=== PATIENT | male | born 1960 | race Caucasian/White ===

== ENCOUNTER → 2022-07-23 14:09 | Outpatient (BNVA) | payer OTHER, SELFPAY | PROVIDERS: Visit Provider Emergency Medicine | DX: M19.011 Primary osteoarthritis, right shoulder (principal) | CPT/HCPCS: 73030 ==

== ENCOUNTER → 2022-08-04 08:07 | Outpatient (BNVA) | payer OTHER, SELFPAY | PROVIDERS: PCP Family Medicine; Visit Provider Family Medicine | DX: I34.1 Nonrheumatic mitral (valve) prolapse (principal) | CPT/HCPCS: 80053; 80061; 83721; 84439; 84443; 85025 ==

== ENCOUNTER 2022-08-24 14:43 | Outpatient (CLI) | payer OTHER, SELFPAY ==
--- NOTE | 2022-08-24 15:15 | USCV_ITS ---
Omar Salazar Age: 62 Gender: M : 1960 Exam Date: 08/24/2022 14:58 Ordering Phys: Abdi Brothers MD Technologist: Genoveva Pierce Exam Location: [facility] [place] Indication: MV prolapse with SOB BP: 137 / 88 HR: 86 Rhythm: Sinus Technical Quality: Adequate MEASUREMENTS (Male / Female) Normal Values 2D ECHO LV Diastolic Diameter PLAX 4.7 cm 4.2 - 5.9 / 3.9 - 5.3 cm LV Systolic Diameter PLAX 3.0 cm IVS Diastolic Thickness 0.7 cm 0.6 - 1.0 / 0.6 - 0.9 cm IVS Systolic Thickness 1.7 cm LVPW Diastolic Thickness 0.9 cm 0.6 - 1.0 / 0.6 - 0.9 cm LVPW Systolic Thickness 1.7 cm LVOT Diameter 2.0 cm LV Ejection Fraction 2D Teich 66.5 % LV Ejection Fraction MOD 2C 74.1 % LV Ejection Fraction 2C AL 73.9 % LA Diameter 2.9 cm LA Width 3.3 cm LA Height 3.6 cm RA Width 3.0 cm RA Height 3.8 cm Aorta at Sinotubular Diameter 3.4 cm IVC Diameter 1.0 cm M-MODE Aortic Annulus Diameter 3.0 cm LA Ao Ratio MM 0.9 MV E Point Septal Separation 0.9 cm DOPPLER AV Peak Velocity 126.0 cm/s LVOT Peak Velocity 124.0 cm/s AV Area Cont Eq vti 3.0 cm squared AV Area Cont Eq pk 3.2 cm squared MV Peak Velocity 106.0 cm/s MV Area PHT 4.8 cm squared Mitral E to A Ratio 1.3 MV E' Velocity 60.5 cm/s Mitral E to MV E' Ratio 12.7 Mitral E to LV E' Lateral Ratio 10.7 Mitral E to LV E' Septal Ratio 16.1 TR Peak Velocity 96.0 cm/s TR Peak Gradient 3.7 mmHg Right Atrial Pressure 5.0 mmHg Pulmonary Artery Systolic Pressu 8.7 mmHg PV Peak Velocity 78.0 cm/s RV Acceleration Time 0.1 s RV Ejection Time 0.3 s RV AcT/ET 0.3 FINDINGS Left Ventricle Left ventricle is normal in size. LV systolic function is normal with EF 55 to 60%. No regional wall motion normalities are seen. Right Ventricle Normal in size and function Right Atrium Normal in size Left Atrium Normal in size Mitral Valve Grossly normal. No significant stenosis. Trace mitral regurgitation. Aortic Valve Grossly normal. No significant stenosis or regurgitation seen. Tricuspid Valve Trace tricuspid regurgitation. Insufficient TR jet to calculate RVSP Pulmonic Valve Not well visualized Pericardium Normal Aorta Mild dilation of ascending aorta IVC Appears to be normal CONCLUSIONS Technically limited quality echocardiogram because of poor ultrasonic windows. LV systolic function is normal with EF 55 to 60%. Grossly normal mitral valve. Trace mitral regurgitation. Trace tricuspid regurgitation Mild dilation of ascending aorta No comparison studies are available Biju Resendiz MD (Electronically Signed) Final Date: 26 August 2022 10:35 S
== END 2022-08-24 14:44 | disposition home or self-care (01) ==
PROVIDERS: PCP Family Medicine; Visit Provider Family Medicine
DX: I34.1 Nonrheumatic mitral (valve) prolapse (principal); I07.1 Rheumatic tricuspid insufficiency; I77.819 Aortic ectasia, unspecified site
CPT/HCPCS: 93306

== ENCOUNTER 2022-08-30 12:11 | Outpatient (CLI) | payer OTHER, SELFPAY ==
--- NOTE | 2022-08-30 12:00 | CT_ITS ---
WS: [id number] LDCT LUNG CANCER SCREENING TECHNIQUE: Noncontrast CT of the chest with coronal and sagittal reformatted images. CLINICAL INFORMATION: lung cancer scr COMPARISON: None. DLP: 85.61 mGy.cm DIvol: Mean CTDIvol: 1.70 (mGy) All CT scans at [facility] use at least one of these dose optimization techniques: automat ed exposure control; mA and/or kV adjustment per patient size (includes targeted exams where dose is matched to clinical indication); or iterative reconstruction. FINDINGS:Noncalcified nodule RIGHT lower lobe measuring 6.5 mm. Normal caliber thoracic aorta. Aortic calcification. No mediastinal or hilar lymphadenopathy. No axil gutierrez lymphadenopathy. Normal GE junction. Adrenal glands are normal. Mild thoracic curve. Schmorl's nodes in the mid and lo wer thoracic spine. CT/CT lung screening [id number] IMPRESSION:Noncalcified nodule RIGHT lower lobe measuring 6.5 mm. Recommend [facility] LUNG-RADS: 3-Probably Benign FOLLOW UP: 6 Month LDCT
== END 2022-08-30 12:12 | disposition home or self-care (01) ==
PROVIDERS: PCP Family Medicine; Visit Provider Family Medicine
DX: Z12.2 Encounter for screening for malignant neoplasm of respiratory organs (principal); F17.219 Nicotine dependence, cigarettes, with unspecified nicotine-induced disorders
CPT/HCPCS: 71271; 80053; 80061; 83721; 84439; 84443; 85025

== ENCOUNTER 2022-11-02 18:22 | Emergency (ER) | payer OTHER, SELFPAY ==
[2022-11-02 18:26] VITALS: BP 177/77; PULSE 96; TEMP 36.4; O2SAT 96; BMI 17.8
--- NOTE | 2022-11-02 18:40 | XRR_ITS ---
PROCEDURE INFORMATION: Exam: XR Left Finger(s) Exam date and time: 11/02/2022 6:44 PM Age: 62 years old Clinical indication: Injury or trauma; Other: Smashed; Crushing; Left; Index finger; Additional info: Left index finger injury (crush) TECHNIQUE: Imaging protocol: Radiologic exam of the left fingers. Views: Minimum 2 views. COMPARISON: No relevant prior studies available. FINDINGS: Bones/joints: Normal. Soft tissues: Normal. XR/XR finger LT min 2V [id number] IMPRESSION: No acute findings.
--- NOTE | 2022-11-02 18:56 | W.ED.EXTPRO ---
HPI - Extremity Problem General: Chief complaint: Extremity Injury, Upper Stated complaint: left finger injury Time Seen by Provider: 11/02/22 18:38 History of Present Illness: Patient is in today after injuring left index finger. He reports that he smashed it between the bumper and the trailer hitch on his knuckle. He reports that he only came in because there was significant bleeding that did not seem to be stopping and it was over a joint. He reports that he is able to flex and extend the finger. He does not think he is up-to-date on his tetanus vaccination. Associated symptoms: Deny fever(s) Review of Systems Const: Denies: fever(s) or chills Musc: Reports: joint pain and joint swelling PFS ED PFSH: Medical History Mitral valve prolapse Tricuspid valve prolapse Surgical History History of back surgery 1990 Family History Other Diabetes Hyperlipidemia Hypertension Denies family history of CAD (coronary artery disease) Clotting disorder Dementia Psychiatric illness Chronic kidney disease (CKD) Anesthesia complication Bleeding disorder Lung disease Cancer Stroke Social History Smoking and tobacco status: former smoker Alcohol intake: current Alcohol intake frequency: 3 or more drinks per day Alcohol type: beer Substance/Drug Use: never Lives independently: Yes Marital status: / Number of children: 3 Current occupational status: employed 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 On the palmar surface of the PIP joint there is a slightly deeper superficial skin flap noted. Bleeding is controlled. Full range of motion of the finger with flexion extension. There is moderate swelling. Neuro: COMMON NORMALS: patient oriented x3 SENSORIUM/ORIENTATION: Yes alert Course Vital Signs: Vital signs: Vital Signs Temperature 97.5 F L 11/02/22 18:26 Pulse Rate 96 11/02/22 18:26 Blood Pressure 177/77 11/02/22 18:26 Pulse Oximetry 96 11/02/22 18:26 Oxygen Delivery Me thod Room Air 11/02/22 18:26 MDM - Extremity (Nontraumatic) Medical Decision Making Crush injury, laceration Update tetanus vaccine today X-ray left index finger Start patient on prophylactic antibiotic Wound is cleaned. Discussed with patient that suture repair would not be beneficial at this time because it is a superficial skin tear/flap. There is nothing to approximate. Bleeding is controlled. Wound is dressed. Follow-up with primary care provider as needed. Return to the ER for new or worsening symptoms Lab Data Radiology Impressions Finger X-Ray 11/02/22 18:40 IMPRESSION: No acute findings. All radiology interpretation(s) finalized by discharge Discharge Plan Discharge Patient Disposition: Home Clinical Impression: Contusion of finger of left hand Laceration of finger Qualifiers: Encounter type: initial encounter Finger: index finger Damage to nail status: without damage Foreign body presence: without foreign body Laterality: left Qualified Code(s): S61.211A - Laceration without foreign body of left index finger without damage to nail, initial encounter Condition: Stable Prescriptions: New cephalexin 500 mg capsule 500 mg PO BID 7 Days Qty: 14 0RF No Action methocarbamol 750 mg tablet 750 mg PO Q8H PRN (Reason: muscle spasm) Qty: 30 0RF atorvastatin [Lipitor] 40 mg tablet 40 mg PO DAILY Qty: 90 1RF Discharge Orders: Discharge ED (Routine); Ordered 11/02/22 Ordered By: Eloisa Coronel Referrals: Abdi Brothers MD [Primary Care Provider] - Discharge Diet: Advance as tolerated Discharge Activity: Increase activity as tolerated Activity Restrictions/Additional Instructions: Keep wound clean and dry. Take antibiotics as directed. Monitor closely for any signs or symptoms of infection. Follow-up with primary care provider. Return to the ER as needed for any new or worsening symptoms Coding Level of Care Code ED Client Liaison for Georgia Espinoza
[2022-11-02] MEDS: tetanus-dipt-pertussis 0.5 mL SDV IM (19:05)
[2022-11-02] MEDS: cephALEXin 500 mg Capsule PO (20:20)
== END 2022-11-02 21:07 | disposition home or self-care (01) ==
PROVIDERS: Emergency Provider Nurse Practitioner Family; PCP Family Medicine
DX: S61.211A Laceration without foreign body of left index finger without damage to nail, initial encounter (principal); S60.022A Contusion of left index finger without damage to nail, initial encounter; W23.0XXA Caught, crushed, jammed, or pinched between moving objects, initial encounter; Z87.891 Personal history of nicotine dependence; Z23 Encounter for immunization
CPT/HCPCS: 73140; 90471; 90715; 99283

== ENCOUNTER 2023-03-05 13:27 | Outpatient (CLI) | payer OTHER, SELFPAY ==
--- NOTE | 2023-03-05 14:00 | CT_ITS ---
WS: [id number] CT chest wo con [id number] HISTORY: pulmonary nodule TECHNIQUE: Axial imaging performed through the thorax. Coronal and sagittal reformats are submitted. All CT scans at [facility] use at least one of these dose optimization techniques: automated exposure control; mA and/or kV adjustment per patient size (includes targeted exams where dose is mat ched to clinical indication); or iterative reconstruction. CONTRAST: None DLP: 492.33 mGy.cm COMPARISON: 08/30/2022 Lungs and central airway: Lungs are well aerated. No interval change in the 5 mm noncalcified nodule superior segment RIGHT lower lobe. No new mass or enlarging nodule. Lungs are otherwise clear. Pleura: Normal. No pleural effusion. Heart and pericardium: Normal size heart with no pericardial effusion. Mediastinum and candida: No mediastinum or hilar adenopathy. Vessels: Minimal thoracic aortic atherosclerosis. No aneurysm. Normal pulmonary artery. Mild coronary artery atherosclerosis. Chest wall and lower neck: No soft tissue masses. Upper abdomen: Normal adrenal glands. Osseous structures: No destructive process. IMPRESSION: 1. No interval change 5 mm noncalcified nodule superior segment RIGHT lower lobe. Consider additiona l noncontrast 12-month chest CT follow-up to ensure long-term stability. 2. Mild atherosclerosis aorta.
== END 2023-03-05 13:28 | disposition home or self-care (01) ==
LOC: RAD 13:27
PROVIDERS: PCP Family Medicine; Visit Provider Family Medicine
DX: R91.1 Solitary pulmonary nodule (principal); I70.0 Atherosclerosis of aorta
CPT/HCPCS: 71250

== ENCOUNTER 2023-07-02 06:01 | Emergency (ER) | payer OTHER, SELFPAY ==
[2023-07-02] VITALS (18 sets, daily range): BP systolic 125–161; BP diastolic 79–107; PULSE 82–98; RESP 11–27; TEMP 36.6; O2SAT 87–98; BMI 27.8
--- NOTE | 2023-07-02 06:16 | XRR_ITS ---
PROCEDURE INFORMATION: Exam: XR Chest Exam date and time: 07/02/2023 6:25 AM Age: 63 years old Clinical indication: Cough and dyspnea; Additional info: Dyspnea/cough TECHNIQUE: Imaging protocol: Radiologic exam of the chest. Views: 1 view. COMPARISON: CT chest con [id number] 03/05/2023 1:44 PM FINDINGS: Lungs: Lungs are hyperinflated. No acute infiltrates are seen. Pleural spaces: No significant pleural fluid. No pneumothorax detected. Heart/Mediastinum: Heart size within normal range. No pulmonary vascular congestion. Bones/joints: No obvious acute abnormality. XR/XR chest 1V portable [id number] IMPRESSION: No acute cardiopulmonary abnormality detected on AP portable chest radiograph.
[2023-07-02 06:28] LABS: Basophils # 0.1 10^3/uL (0.0-0.1); Basophils % 0.8 %; Eosinophils # 0.5 10^3/uL (0.0-0.8); Eosinophils % 7.1 %; Hematocrit 43.9 % (37-53); Lymphocytes # 2.5 10^3/uL (0.8-4.8); Lymphocytes % 34.5 %; Mean Corpuscular HGB Conc 31.9 g/dL (30-55); Mean Corpuscular Hemoglobin 29.9 pg (27-33); Mean Corpuscular Volume 93.6 fl (82-101); Mean Platelet Volume 9.5 fL (7.4-10.4); Monocytes # 0.7 10^3/uL (0.2-0.9); Monocytes % 9.7 %; Neutrophils # 3.41 10^3/uL (1.8-7.7); Neutrophils % 47.8 %; Nucleated Red Blood Cells % 0 %; Platelet Count 346 10^3/cmm (157-399); Red Blood Count 4.69 10^6/uL (3.85-5.65); Red Cell Distribution Width 13.8 % (12.1-15.1); White Blood Count 7.15 10^3/uL (3.29-11.43)
--- NOTE | 2023-07-02 06:31 | ED_ITS ---
HPI - Chest Pain 2 General: Chief Complaint: Chest Pain Stated Complaint: chest pain Time Seen by Provider: 07/02/23 06:02 Source: patient Mode of arrival: ambulatory History of Present Illness: 63-year-old male presents emergency room complaining of chest pain that began over the weekend. States he has been short of breath with congestion for the last but short of breath with almost any exertion at all not having any active chest pain at this time. He does get it intermittently it is not associated with activity. Reports history of mitral and tricuspid prolapse. Has noticed slight amount of swelling to his legs. He is not on any antihypertensives at this time. MD complaint: chest discomfort Associated symptoms: Reports dyspnea; Deny abdominal pain, fever(s), nausea or vomiting Review of Systems 2 Const: Denies: fever(s), chills, fatigue or malaise Card: Reports: chest pain and dyspnea on exertion; Denies: edema or swelling of feet/ankles Resp: Reports: dyspnea, non-productive cough and wheezing GI: Denies: abdominal pain, nausea or vomiting : Denies: flank pain, dysuria, urinary frequency or urinary urgency Musc: Denies: neck pain or back pain Skin/Breast: Denies: rash PFSH ED 2 PFSH: Medical History Mitral valve prolapse Tricuspid valve prolapse Surgical History History of back surgery 1990 Family History Other Diabetes Hyperlipidemia Hypertension Denies family history of CAD (coronary artery disease) Clotting disorder Dementia Psychiatric illness Chronic kidney disease (CKD) Anesthesia complication Bleeding disorder Lung disease Cancer Stroke Social History Smoking and tobacco/nicotine status: former use of tobacco/nicotine Alcohol intake: current Alcohol intake frequency: 3 or more drinks per day Alcohol type: beer Substance/Drug Use: never Lives independently: Yes Marital status: / Number of children: 3 Current occupational status: employed 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 Special tin needs: No Agree to transfusion: Yes Physical Exam 2 Const: GENERAL APPEARANCE: cooperative and comfortable O RIENTATION/CONSCIOUSNESS: Yes awake, Yes oriented to person, Yes oriented to place and Yes oriented to time HENMT: COMMON NORMALS: normocephalic, atraumatic and hearing grossly normal bilaterally HEAD & SCALP: normocephalic and atraumatic Resp: COMMON NORMALS: normal respiratory effort, No retractions and No use of accessory muscles AUSCULTATION: crackles, wheezes and diminished lung sounds Cardio: COMMON NORMALS: regular rate, regular rhythm and No murmurs present (Cardio) RATE: regular rate RHYTHM: regular rhythm GI: COMMON NORMALS: Soft to palpation and No hepatosplenomegaly present A USCULTATION: Yes normoactive bowel sounds PALPATION: Yes Soft to palpation, No Tenderness to palpation present (GI), No Guarding due to palpation present (GI) and Yes No hepatosplenomegaly present Extremity: COMMON NORMALS: normal to inspection, capillary refill normal, no clubbing, cyanosis or edema, no calf tenderness and no pedal edema Neuro: SENSORIUM/ORIENTATION: Yes oriented to person, Yes oriented to place and Yes oriented to time Skin: COMMON NORMALS: no rashes or lesions noted GENERAL SKIN EXAM: no rashes or lesions noted Course 2 Vital Signs: Vital signs: Vital Signs Temperature 97.8 F 07/02/23 06:08 Pulse Rate 87 07/02/23 10:09 Respiratory Rate 14 07/02/23 10:09 Blood Pressure 142/92 07/02/23 10:09 Pulse Oximetry 87 L 07/02/23 10:09 Oxygen Delivery Me thod Room Air 07/02/23 07:48 MDM - Chest Pain Medical Decision Making Labs and imaging reviewed. EKGs did not show any acute ST changes cardiac enzymes trended normal. Given the patient's blood gas well compensated with a pCO2 of 48 and pO2 of 60 I believe he probably has COPD did feel some improvement with his nebulizers will discharge patient home start him on Symbicort albuterol to use as needed follow-up with primary care doctor will likely need pulmonary function test. In addition to this we will set him up for outpatient Lexiscan sestamibi stress test asked him to take baby aspirin daily. Prednisone taper as well. And follow-up with his primary care. Return if has further problems. Medical Records I reviewed the patient's medical records. Lab Data I reviewed the patient's lab results. 07/02/23 06:16 07/02/23 06:16 Radiology Impressions Chest X-Ray 07/02/23 06:16 IMPRESSION: No acute cardiopulmonary abnormality detected on AP portable chest radiograph. Laboratory Results WBC 7.15 10^3/uL (3.29-11.43) 07/02/23 06:16 RBC 4.69 10^6/uL (3.85-5.65) 07/02/23 06:16 Hgb 14.00 g/dL (11.27-16.99) 07/02/23 06:16 Hct 43.9 % (37-53) 07/02/23 06:16 MCV 93.6 fl (82-101) 07/02/23 06:16 MCH 29.9 pg (27-33) 07/02/23 06:16 MCHC 31.9 g/dL (30-55) 07/02/23 06:16 RDW 13.8 % (12.1-15.1) 07/02/23 06:16 Plt Count 346 10^3/cmm (157-399) 07/02/23 06:16 MPV 9.5 fL (7.4-10.4) 07/02/23 06:16 Neut % (Auto) 47.8 % 07/02/23 06:16 Lymph % (Auto) 34.5 % 07/02/23 06:16 [place] % (Auto) 9.7 % 07/02/23 06:16 Eos % (Auto) 7.1 % 07/02/23 06:16 Baso % (Auto) 0.8 % 07/02/23 06:16 Neut # (Auto) 3.41 10^3/uL (1.8-7.7) 07/02/23 06:16 Lymph # (Auto) 2.5 10^3/uL (0.8-4.8) 07/02/23 06:16 [place] # (Auto) 0.7 10^3/uL (0.2-0.9) 07/02/23 06:16 Eos # (Auto) 0.5 10^3/uL (0.0-0.8) 07/02/23 06:16 Baso # (Auto) 0.1 10^3/uL (0.0-0.1) 07/02/23 06:16 Nucleated RBC % (auto) 0 % 07/02/23 06:16 Nucleated RBCs # 0.0 /100WBC 07/02/23 06:16 Specimen Type Arterial 07/02/23 06:40 Sample Site Radial, left 07/02/23 06:40 ABG pH 7.42 (7.35-7.45) 07/02/23 06:40 ABG pCO2 48.3 mmHg (35-45) H 07/02/23 06:40 ABG pO2 60.7 mmHg (80.0-100.0) L 07/02/23 06:40 ABG HCO3 31.2 mmol/L (22-26) H 07/02/23 06:40 ABG O2 Saturation 91.5 07/02/23 06:40 ABG Base Excess 5.6 mmol/L (-2.0-2.0) H 07/02/23 06:40 Jose Test Pos 07/02/23 06:40 A-a O2 Gradient 3.8 mmHg (5-10) L 07/02/23 06:40 Hematocrit 41.9 % (42-52) L 07/02/23 06:40 Hgb O2 Saturation 90.2 % (95-100) L 07/02/23 06:40 Carboxyhemoglobin 1.1 %THgb (0.4-20.1) 07/02/23 06:40 Methemoglobin 0.4 % (0.4-1.5) 07/02/23 06:40 Total Hemoglobin 13.7 g/dL (14-18) L 07/02/23 06:40 Sodium 143.0 mmol/L (131-143) 07/02/23 06:40 Potassium 3.3 mmol/L (3.5-5.0) L 07/02/23 06:40 Glucose 94.0 mg/dL (70-115) 07/02/23 06:40 Ionized Calcium 1.2 mmol/L (1.1-1.4) 07/02/23 06:40 O2 Delivery Device Room air 07/02/23 06:40 Senior Fund Accountant ID [email or web address] 07/02/23 06:40 Sodium 139 mmol/L (136-145) 07/02/23 06:16 Potassium 3.5 mmol/L (3.5-5.1) 07/02/23 06:16 Chloride 99 mmol/L (98-107) 07/02/23 06:16 Carbon Dioxide 31 mmol/L (22-29) H 07/02/23 06:16 Anion Gap 12.5 (5-19) 07/02/23 06:16 BUN 18 mg/dL (8-23) 07/02/23 06:16 Creatinine 0.8 mg/dL (0.7-1.2) 07/02/23 06:16 GFR Calculation 98.3 mL/min (90-130) 07/02/23 06:16 Glucose 100 mg/dL (65-115) 07/02/23 06:16 Calculated Osmolality 290 mOsm/kg (285-295) 07/02/23 06:16 Calcium 9.2 mg/dL (8.5-10.5) 07/02/23 06:16 Total Bilirubin 0.2 mg/dL (0.15-1.2) 07/02/23 06:16 AST 16 U/L (0-40) 07/02/23 06:16 ALT 18 U/L (0-41) 07/02/23 06:16 Alkaline Phosphatase 147 U/L (40-130) H 07/02/23 06:16 Ammonia 18 umol/L (16-60) 07/02/23 06:16 Troponin T Baseline 12 ng/L (0-15) 07/02/23 06:16 Troponin T 120 Minute 11.05 ng/L (0-15) 07/02/23 08:34 Delta Troponin T -0.95 ABS# (0-10) L 07/02/23 08:34 NT-Pro-B Natriuret Pep 203 pg/mL (0-125) H 07/02/23 06:16 Total Protein 7.5 g/dL (6.6-8.7) 07/02/23 06:16 Albumin 4.1 g/dL (3.5-5.2) 07/02/23 06:16 Globulin 3.4 g/dL (1.3-4.6) 07/02/23 06:16 Lipase 37 U/L (13-60) 07/02/23 06:16 Procalcitonin 0.05 ng/mL (0-0.5) 07/02/23 06:16 Urine Color Straw (Yellow) 07/02/23 07:20 Urine Appearance Clear (CLEAR) 07/02/23 07:20 Urine pH 6.5 (5-7) 07/02/23 07:20 Ur Specific [place] 1.010 (1.005-1.030) 07/02/23 07:20 Urine Protein Neg (Negative) 07/02/23 07:20 Urine Glucose (UA) Norm (Normal) 07/02/23 07:20 Urine Ketones Negative (Negative) 07/02/23 07:20 Urine Blood Neg (Negative) 07/02/23 07:20 Urine Nitrate Negative (Negative) 07/02/23 07:20 Urine Bilirubin Neg (Negative) 07/02/23 07:20 Urine Urobilinogen Norm mg/dL (Negative) 07/02/23 07:20 Ur Leukocyte Esterase Negative (Negative) 07/02/23 07:20 Ethyl Alcohol < 10 mg/dL (0-10) 07/02/23 06:16 All radiology interpretation(s) finalized by discharge Discharge Plan Discharge Patient Disposition: Home Clinical Impression: COPD (chronic obstructive pulmonary disease), Atypical chest pain Condition: Stable Prescriptions: New Symbicort 80-4.5 mcg/actuation HFA aerosol inhaler 2 inh inhalation BID Qty: 10.2 0RF Medrol (Amos) 4 mg tablets,dose pack See Rx Instructions .ROUTE .COMPLEX Qty: 21 0RF Rx Instructions: orally per package directions albuterol sulfate 90 mcg/actuation HFA aerosol inhaler 2 inh INHALATION Q4H PRN (Reason: shortness of breath or wheezing) Qty: 18 0RF aspirin 81 mg tablet,delayed release (DR/EC) 81 mg PO DAILY Qty: 30 0RF No Action atorvastatin [Lipitor] 40 mg tablet 40 mg PO DAILY Qty: 30 0RF Discharge Orders: Discharge ED (Routine); Ordered 07/02/23 Ordered By: Mauricio Wade Referrals: Abdi Brothers MD [Primary Care Provider] - Discharge Diet: Usual diet Discharge Activity: Increase activity as tolerated Patient Instructions: Opioid Safety, Pain Management Coding Level of Care Code ED Guard Manager for Georgia Espinoza
[2023-07-02] MEDS: dexamethasone 10 mg/mL INJ IM (06:43)
[2023-07-02] MEDS: FUROsemide 10 mg/mL SDV 4mL 40 MG IVP (06:43)
[2023-07-02] MEDS: aspirin 81 mg Chew Tablet 324 MG PO (06:44)
[2023-07-02 06:45] LABS: Alanine Aminotransferase 18 U/L (0-41); Albumin Level 4.1 g/dL (3.5-5.2); Alkaline Phosphatase 147 U/L (40-130); Anion Gap 12.5 (5-19); Aspartate Amino Transferase 16 U/L (0-40); Blood Urea Nitrogen 18 mg/dL (8-23); Calcium 9.2 mg/dL (8.5-10.5); Carbon Dioxide 31 mmol/L (22-29); Chloride 99 mmol/L (98-107); Creatinine Clr Calc Pharmacy 111.7345; Globulin 3.4 g/dL (1.3-4.6); Glomerular Filtration Rate 98.3 mL/min (90-130); Glucose 100 mg/dL (65-115); Lipase 37 U/L (13-60); Osmolality Calculated 290 mOsm/kg (285-295); Potassium 3.5 mmol/L (3.5-5.1); Sodium 139 mmol/L (136-145); Total Bilirubin 0.2 mg/dL (0.15-1.2); Total Protein 7.5 g/dL (6.6-8.7)
[2023-07-02 06:47] LABS: Alcohol Level < 10 mg/dL (0-10)
[2023-07-02 06:48] LABS: Ammonia 18 umol/L (16-60); Troponin(5th) Baseline 12 ng/L (0-15)
[2023-07-02 06:59] LABS: ABG PCO2 48.3 mmHg (35-45); ABG PH Result 7.42 (7.35-7.45); Alveolar-Arterial Oxygen Gradi 3.8 mmHg (5-10); Arterial Blood Gas Hematocrit 41.9 % (42-52); Base Excess ABG 5.6 mmol/L (-2.0-2.0); Blood Gas Allen Test Pos; Blood Gas Sample Site Radial, left; Blood Gas Sample Type Arterial; Carboxyhemoglobin 1.1 %THgb (0.4-20.1); HCO3 ABG 31.2 mmol/L (22-26); HGB O2 Sat 90.2 % (95-100); Ionized Calcium Level - ABG 1.2 mmol/L (1.1-1.4); Methemoglobin 0.4 % (0.4-1.5); Oxygen Device ROOM AIR; Oxygen Saturation ABG 91.5; PO2 ABG 60.7 mmHg (80.0-100.0); Potassium Level - ABG 3.3 mmol/L (3.5-5.0); Total Hemoglobin 13.7 g/dL (14-18)
[2023-07-02 07:13] LABS: NT Pro B Type Natriuretic Pept 203 pg/mL (0-125); Procalcitonin 0.05 ng/mL (0-0.5)
[2023-07-02 07:24] LABS: Add Urine Microscopic? NO; Charge for UA Resulting for Rev
[2023-07-02 07:34] LABS: Urine Appearance Clear (CLEAR); Urine Color Straw (Yellow); pH Urine 6.5 (5-7)
[2023-07-02 07:35] LABS: Bilirubin Urine Neg (Negative); Blood Urine Neg (Negative); Glucose Urine UA Norm (Normal); Ketones Urine Negative (Negative); Leukocyte Esterase Urine Negative (Negative); Nitrate Urine Negative (Negative); Protein Urine Neg (Negative); Urobilinogen Urine Norm (Negative)
[2023-07-02] MEDS: ipratropium-albuterol 3 mL Neb INHALATION (07:43)
[2023-07-02 09:28] LABS: Troponin 5 2HR 11.05 ng/L (0-15)
[2023-07-02 09:29] LABS: Troponin 5 2HR Delta -0.95 ABS# (0-10)
--- NOTE | 2023-07-02 12:17 | ECG_ITS ---
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 Measurements Intervals Williams Rate: 98 P: 83 DC: 172 QRS: 63 QRSD: 89 T: 71 QT: 353 QTc: 453 Interpretive Statements SINUS RHYTHM INTERPRETATION BASED ON A DEFAULT AGE OF 40 YEARS No previous ECG available for comparison Electronically Signed On 07-02-2023 18:05:40 CDT by Sheryl Weber M.D. [id number]
--- NOTE | 2023-07-09 09:19 | DCPLANNER ---
faxed lexiscan order toe scheduling for er f/u
--- NOTE | 2023-07-09 09:40 | DCPLANNER ---
faxed order for anderson to schedule for er f/u
== END 2023-07-02 10:14 | disposition home or self-care (01) ==
PROVIDERS: Emergency Provider Family Medicine; PCP Family Medicine
DX: R07.89 Other chest pain (principal); J44.9 Chronic obstructive pulmonary disease, unspecified; Z87.891 Personal history of nicotine dependence
CPT/HCPCS: 36415; 36600; 71045; 80051; 80053; 80307; 81003; 82140; 82330; 82805; 83690; 83880; 84145; 84484; 85025; 93005; 94640; 96372; 96374; 99285; J1100; J1940

== ENCOUNTER 2023-08-06 10:17 | Emergency (ER) | payer OTHER, SELFPAY ==
[2023-08-06 11:09] VITALS: BP 120/81; PULSE 85; RESP 18; TEMP 36.4; O2SAT 96; BMI 29.4
--- NOTE | 2023-08-06 11:26 | W.ED.SKABFB ---
HPI - Skin/Abscess/Foreign Bdy General: Chief complaint: Skin/Abscess/Foreign Body Stated complaint: Spot on left arm Time Seen by Provider: 08/06/23 11:06 Source: patient Mode of arrival: ambulatory Limitations: no limitations History of Present Illness: Patient is a 63-year-old male who presents to ED today for evaluation of a hemorrhagic area to his left upper arm that he noticed this morning. Patient thinks he may have gotten bit or stung by something in the middle of the night. He has no other injuries or complaints at this time. He states area does not burn or itch. MD complaint: discoloration Onset (ago): hour(s) Tetanus up to date: yes Location: LUE Severity: mild Relieving factors: none Exacerbating factors: none Context: none Associated symptoms: Reports no associated symptoms; Deny fever(s), nausea or vomiting Treatments prior to arrival: none Review of Systems Const: Denies: fever(s) GI: Denies: nausea, vomiting or diarrhea Musc: Denies: neck pain, back pain, extremity pain, extremity swelling, joint pain, joint swelling, joint redness or joint warmth Skin/Breast: Reports: new lesions Neuro: Denies: headache(s), numbness in extremities, weakness in extremities or sensory changes PFS ED PFSH: Medical History COPD (chronic obstructive pulmonary disease) Mitral valve prolapse Tricuspid valve prolapse Surgical History History of back surgery 1989 Family History Other Diabetes Hyperlipidemia Hypertension Denies family history of CAD (coronary artery disease) Clotting disorder Dementia Psychiatric illness Chronic kidney disease (CKD) Anesthesia complication Bleeding disorder Lung disease Cancer Stroke Social History Smoking and tobacco/nicotine status: former use of tobacco/nicotine Alcohol intake: current Alcohol intake frequency: 3 or more drinks per day Alcohol type: beer Substance/Drug Use: never Lives independently: Yes Marital status: / Number of children: 3 Current occupational status: employed 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 small quarter sized area of ecchymosis/hemorrhage with central possible bite like lesion; no induration or fluctuance; no drainage; no surrounding redness/warmth/streaking; patient has outlined area with a marker Neuro: COMMON NORMALS: patient oriented x3 SENSORIUM/ORIENTATION: Yes alert Skin: NARRATIVE SKIN EXAM: see above Course Vital Signs: Vital signs: Vital Signs Temperature 97.6 F 08/06/23 11:09 Pulse Rate 85 08/06/23 11:09 Respiratory Rate 18 08/06/23 11:09 Blood Pressure 120/81 08/06/23 11:09 Pulse Oximetry 96 08/06/23 11:09 Oxygen Delivery Me thod Room Air 08/06/23 11:09 MDM - Skin/Abscess/Foreign Bdy Medicial Decision Making At this time I would favor bite/sting for etiology of his skin lesion. Recommend keeping clean with warm soap and water and avoid picking. No indication for antibiotics at this time. Return to ED precautions given. Medical Records I reviewed the patient's medical records. No radiology studies performed this visit Discharge Plan Discharge Patient Disposition: Home Clinical Impression: Bite or sting by insect Condition: Stable Prescriptions: No Action budesonide-formoterol [Symbicort] 160-4.5 mcg/actuation HFA aerosol inhaler 2 puff inhalation BID Qty: 10.2 3RF guaifenesin [Mucinex] 1,200 mg tablet extended release 12hr 1,200 mg PO BID PRN (Reason: as needed for phlegm) Qty: 30 0RF atorvastatin [Lipitor] 40 mg tablet 40 mg PO DAILY Qty: 90 3RF albuterol sulfate 90 mcg/actuation HFA aerosol inhaler 2 inh INHALATION Q4H PRN (Reason: shortness of breath or wheezing) Qty: 18 0RF aspirin 81 mg tablet,delayed release (DR/EC) 81 mg PO DAILY Qty: 30 0RF Discharge Orders: Discharge ED (Routine); Ordered 08/06/23 Ordered By: Ольга Wagoner Referrals: Abdi Brothers MD [Primary Care Provider] - Activity Restrictions/Additional Instructions: As we discussed keep lesion clean with warm soap and water. Avoid picking. Monitor closely for worsening redness, hemorrhage, warmth, purulent drainage. Please seek medical reevaluation if these occur. Otherwise like we discussed, most of these bites/stings are self-limited meaning they will heal without intervention. Coding Level of Care Code ED Nurse Practitioner Hospitalist for [place] Espinoza
== END 2023-08-06 11:33 | disposition home or self-care (01) ==
PROVIDERS: Emergency Provider Physician Assistant; PCP Family Medicine
DX: S40.862A Insect bite (nonvenomous) of left upper arm, initial encounter (principal); W57.XXXA Bitten or stung by nonvenomous insect and other nonvenomous arthropods, initial encounter; Z87.891 Personal history of nicotine dependence; J44.9 Chronic obstructive pulmonary disease, unspecified; Z79.82 Long term (current) use of aspirin
CPT/HCPCS: 99281

== ENCOUNTER 2023-12-06 06:30 | Emergency (ER) | payer OTHER, SELFPAY ==
[2023-12-06 06:56] VITALS: BP 177/89; PULSE 82; RESP 16; TEMP 36.7; O2SAT 98; BMI 29.4
--- NOTE | 2023-12-06 06:58 | XRR_ITS ---
PROCEDURE INFORMATION: Exam: XR Right Shoulder Exam date and time: 12/06/2023 7:07 AM Age: 63 years old Clinical indication: Patient HX: Right shoulder pain x1 month, PT has appt with primary provider in a month. PT denies injury/fall. . Posterior scpula pain TECHNIQUE: Imaging protocol: Radiologic exam of the right shoulder. Views: 2 or more views. COMPARISON: CR XR shoulder RT min 2V* [id number] 07/23/2022 2:15 PM FINDINGS: Bones/joints: Mild acromioclavicular joint arthrosis. Soft tissues: Normal. XR/XR shoulder RT min 2V* [id number] IMPRESSION: Mild acromioclavicular joint arthrosis.
--- NOTE | 2023-12-06 06:59 | W.ED.EXTPRO ---
HPI - Extremity Problem General: Chief complaint: Extremity Problem,Nontraumatic Stated complaint: should pains Time Seen by Provider: 12/06/23 06:31 Source: patient Mode of arrival: ambulatory Limitations: no limitations History of Present Illness: 63-year-old male states been having right shoulder pain for months. States he has had no specific injury but he has pain he states over the right lateral shoulder and in his right shoulder blade he states the pains been worse with movement of that right arm. Denies any chest pain denies any weakness Associated symptoms: Deny chest pain, fever(s) or rash Related Data Previous Rx's Medication Instructions Recorded aspirin 81 mg tablet,delayed 81 mg PO DAILY #30 tabs 07/02/23 release atorvastatin 40 mg tablet (Lipitor) 40 mg PO DAILY #90 tabs 07/12/23 guaifenesin 1,200 mg tablet, 1,200 mg PO BID PRN as needed for 07/12/23 extended release 12 hr (Mucinex) phlegm #30 tabs fluticasone furoate 200 1 inh inhalation DAILY #60 ea 09/24/23 mcg-vilanterol 25 mcg/dose inhalation powder (Breo Ellipta) fluticasone propionate 50 2 spray intranasal DAILY #16 grams 09/24/23 mcg/actuation nasal spray,suspension (Flonase Allergy Relief) losartan 50 mg tablet 50 mg PO DAILY #90 tabs 09/24/23 albuterol sulfate 90 mcg/actuation 2 inh inhalation Q4H PRN shortness 11/05/23 aerosol inhaler of breath or wheezing #18 grams prednisone 20 mg tablet 20 mg PO DAILY 5 days #5 tabs 11/23/23 methocarbamol 750 mg tablet 750 mg PO Q6H PRN spasms #20 tabs 12/06/23 naproxen 500 mg tablet (Naprosyn) 500 mg PO BID PRN pain #20 tabs 12/06/23 Allergies Allergy/AdvReac Type Severity Reaction Status Date / Time No Known Allergies Allergy Verified 11/23/23 15:37 Review of Systems Const: Denies: fever(s), chills, body aches or change in appetite ENMT: Denies: throat pain or dental pain Card: Denies: chest pain Resp: Denies: dyspnea GI: Denies: abdominal pain, nausea, vomiting or diarrhea Musc: Reports: extremity pain; Denies: neck pain or back pain Skin/Breast: Denies: rash Neuro: Denies: headache(s) PFSH ED PFSH: Medical History COPD (chronic obstructive pulmonary disease) Mitral valve prolapse Tricuspid valve prolapse Surgical History History of back surgery 1990 Family History Other Diabetes Hyperlipidemia Hypertension Denies family history of CAD (coronary artery disease) Clotting disorder Dementia Psychiatric illness Chronic kidney disease (CKD) Anesthesia complication Bleeding disorder Lung disease Cancer Stroke Social History Smoking and tobacco/nicotine status: unknown if used tobacco/nicotine Alcohol intake: current Alcohol intake frequency: 3 or more drinks per day Alcohol type: beer Substance/Drug Use: never Lives independently: Yes Marital status: / Number of children: 3 Current occupational status: employed 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 Special tin needs: No Agree to transfusion: Yes Physical Exam Const: COMMON NORMALS: no acute distress, patient oriented x3 and healthy appearing HENMT: COMMON NORMALS: normocephalic and atraumatic HEAD & SCALP: normocephalic and atraumatic Neck/C-Spine: COMMON NORMALS: full ROM and supple Chest: COMMONS NORMALS: normal inspection of the chest Resp: COMMON NORMALS: normal respiratory effort Cardio: COMMON NORMALS: regular rate, regular rhythm and No murmurs present (Cardio) RATE: regular rate RHYTHM: regular rhythm GI: COMMON NORMALS: Normal to inspection, nondistended, normoactive bowel sounds present, Soft to palpation, non-tender and no masses PALPATION: Yes Soft to palpation Extremity: COMMON NORMALS: normal to inspection and full ROM NARRATIVE EXTREMITY EXAM: Tenderness noted over right rhomboid has full range of motion some pain with abduction Neuro: COMMON NORMALS: patient oriented x3, moves all extremities and no focal motor deficits Psych: COMMON NORMALS: mental status grossly normal, Normal thought process present and cooperative THOUGHT PROCESS: Normal thought process present Skin: COMMON NORMALS: no rashes or lesions noted and no wounds GENERAL SKIN EXAM: no rashes or lesions noted Course Vital Signs: Vital signs: Vital Signs Temperature 98.1 F 12/06/23 06:56 Pulse Rate 82 12/06/23 06:56 Respiratory Rate 16 12/06/23 06:56 Blood Pressure 177/89 12/06/23 06:56 Pulse Oximetry 98 12/06/23 06:56 Oxygen Delivery Me thod Room Air 12/06/23 06:56 MDM - Extremity (Nontraumatic) Medical Decision Making Patient presents here with right shoulder pain is likely muscular in origin x-ray EKG here normal looking follow-up will prescribe him Naprosyn Robaxin he is return if worsening he understands agrees to plan Medical Records I reviewed the patient's medical records. XR interpretation done by ED provider, pending radiology final review ED provider radiology interpretation(s): xr r shoulder/ no fx EKG Data EKG 1: I personally reviewed and interpreted this EKG as follows: EKG interpretation date: 12/06/23 EKG interpretation time: 07:10 Interpretation: nsr hr [address] elevation qrs 88 qtc 406 Discharge Plan Discharge Patient Disposition: Home Clinical Impression: Pain in right shoulder Condition: Stable Prescriptions: New methocarbamol 750 mg tablet 750 mg PO Q6H PRN (Reason: spasms) Qty: 20 0RF naproxen [Naprosyn] 500 mg tablet 500 mg PO BID PRN (Reason: pain) Qty: 20 0RF No Action fluticasone propionate [Flonase Allergy Relief] 50 mcg/actuation spray,suspension 2 spray intranasal DAILY Qty: 16 3RF Rx Instructions: administer into each nostril fluticasone furoate-vilanterol [Breo Ellipta] 200-25 mcg/dose blister with device 1 inh inhalation DAILY Qty: 60 3RF losartan 50 mg tablet 50 mg PO DAILY Qty: 90 1RF guaifenesin [Mucinex] 1,200 mg tablet extended release 12hr 1,200 mg PO BID PRN (Reason: as needed for phlegm) Qty: 30 0RF atorvastatin [Lipitor] 40 mg tablet 40 mg PO DAILY Qty: 90 3RF prednisone 20 mg tablet 20 mg PO DAILY 5 Days Qty: 5 0RF albuterol sulfate 90 mcg/actuation HFA aerosol inhaler 2 inh INHALATION Q4H PRN (Reason: shortness of breath or wheezing) Qty: 18 3RF aspirin 81 mg tablet,delayed release (DR/EC) 81 mg PO DAILY Qty: 30 0RF Discharge Orders: Discharge ED (Routine); Ordered 12/06/23 Ordered By: Nora Niño Referrals: Terra Toscano MD [Physician] - 4-7 days Abdi Brothers MD [Primary Care Provider] - Discharge Diet: Advance as tolerated Discharge Activity: Resume usual activity Patient Instructions: Shoulder Pain (ED) Coding Level of Care Code ED Nurse Anesthetist for [place] Espinoza
--- NOTE | 2023-12-06 07:10 | ECG_ITS ---
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
[2023-12-06] MEDS: ketorolac 30 mg/mL INJ IM (07:12)
[2023-12-06] MEDS: methocarbamol 750 mg Tablet 1500 MG PO (07:13)
[2023-12-06 07:24] VITALS: BP 151/94; PULSE 74; O2SAT 98
--- NOTE | 2023-12-06 07:34 | DCPLANNER ---
messaged ortho for er f/u
== END 2023-12-06 07:27 | disposition home or self-care (01) ==
PROVIDERS: Emergency Provider Emergency Medicine; PCP Family Medicine
DX: M25.511 Pain in right shoulder (principal); Z79.82 Long term (current) use of aspirin; J44.9 Chronic obstructive pulmonary disease, unspecified
CPT/HCPCS: 73030; 93005; 96372; 99284; J1885

== ENCOUNTER → 2023-12-24 09:47 | Outpatient (BNVA) | payer OTHER, SELFPAY | PROVIDERS: PCP Family Medicine; Visit Provider Specialist | DX: M25.511 Pain in right shoulder (principal); M89.8X1 Other specified disorders of bone, shoulder | CPT/HCPCS: 73030 ==

== ENCOUNTER 2024-01-10 08:48 | Outpatient (CLI) | payer OTHER, SELFPAY ==
--- NOTE | 2024-01-10 09:00 | CT_ITS ---
WS: [id number] LDCT LUNG CANCER SCREENING TECHNIQUE: Noncontrast CT of the chest with coronal and sagittal reformatted images. CLINICAL INFORMATION: screening, lung nodule COMPARISON: CT 08/30/2022 DLP: 87.21 mGy.cm DIvol: Mean CTDIvol: 1.70 (mGy) All CT scans at [facility] use at least one of these dose optimization techniques: automat ed exposure control; mA and/or kV adjustment per patient size (includes targeted exams where dose is matched to clinical indication); or iterative reconstruction. FINDINGS: Stable appearance of described noncalcified nodule RIGHT lower lobe measuring 6.0 mm. Small amount of adjacent fibrosis in this area today. New hazy slightly spiculated opacity LEFT upper lobe. Recommend 6-month follow-up. This measures appr oximately 5 mm. Fibrosis in the lung apices. A few tiny micronodules in the RIGHT upper lobe. Normal caliber thoracic aorta. Aortic calcification. Coronary calcification. No mediastinal or hilar lymphadenopathy. No axillary lymphadenopathy. Normal GE junction. Adrenal glands are normal. Mild thoracic curve. Schmorl's nodes in the mid and lower thoracic spine. CT/CT lung screening [id number] IMPRESSION:New hazy slightly spiculated opacity LEFT upper lobe. Recommend 6-mo nth follow-up. This measures approximately 5 mm. LUNG-RADS: 3-Probably Benign FOLLOW UP: 6 Month LDCT
== END 2024-01-10 08:49 | disposition home or self-care (01) ==
LOC: RAD 08:49
PROVIDERS: PCP Family Medicine; Visit Provider Family Medicine
DX: Z12.2 Encounter for screening for malignant neoplasm of respiratory organs (principal); F17.219 Nicotine dependence, cigarettes, with unspecified nicotine-induced disorders; R91.1 Solitary pulmonary nodule; J84.10 Pulmonary fibrosis, unspecified; I70.0 Atherosclerosis of aorta; I25.84 Coronary atherosclerosis due to calcified coronary lesion
CPT/HCPCS: 71271

== ENCOUNTER 2024-02-18 13:47 | Outpatient (CLI) | payer OTHER, SELFPAY ==
--- NOTE | 2024-02-18 13:45 | MR_ITS ---
WS: [id number] MRI RIGHT SHOULDER HISTORY: pain of right scapula COMPARISON: Shoulder radiographs 12/24/2023 TECHNIQUE: Multiplanar sequences of the shoulder joint are submitted. Moderate AC joint arthritis. No subacromial or subdeltoid fluid. Minimal subacromial impingement. No os acromion. Biceps tendon in normal position. Mild subchondral edema in the posterior lateral trixie l head. Very slightly high riding humeral head. Mild atrophy of the subscapularis muscle. The very distal sub scapularis tendon is not well visualized and suspicious for at least a partial tear. Moderate coracoh umeral interval narrowing encroaching upon the distal subscapularis tendon. No labral tear. No signif icant joint effusion. Supraspinatus and infraspinatus tendons are intact. MR/MR shoulder RT wo con* [id number] IMPRESSION: 1. Moderate AC joint arthritis and mild subacromial impingement. 2. Abnormal signal in the distal subscapularis tendon at the level of the gordy cohumeral interval. Narrowing of the coracohumeral interval with at least a par tial tear of the subscapularis tendon. 3. Subchondral edema posterior lateral humeral head.
== END 2024-02-18 13:48 | disposition home or self-care (01) ==
PROVIDERS: PCP Family Medicine; Visit Provider Specialist
DX: M89.8X1 Other specified disorders of bone, shoulder (principal); M19.011 Primary osteoarthritis, right shoulder
CPT/HCPCS: 73221

== ENCOUNTER 2024-04-11 19:02 | Emergency (ER) | payer OTHER, SELFPAY ==
--- NOTE | 2024-04-11 19:11 | XRR_ITS ---
PROCEDURE INFORMATION: Exam: XR Left Ankle Exam date and time: 04/11/2024 7:17 PM Age: 63 years old Clinical indication: Pain and injury or trauma; Fall; Sprain or strain; Ankle; Left; Injury details: Fell on ice; Additional info: Injury/pain TECHNIQUE: Imaging protocol: Radiologic exam of the left ankle. Views: 3 or more views. COMPARISON: No relevant prior studies available. FINDINGS: Bones/joints: Fracture of the lateral malleolus. Soft tissues: Soft tissue swelling along the lateral aspect of the ankle. XR/XR ankle LT min 3V* [id number] IMPRESSION: 1. Soft tissue swelling along the lateral aspect of the ankle. 2. Fracture of the lateral malleolus.
[2024-04-11 19:33] VITALS: BP 142/73; PULSE 107; RESP 18; TEMP 36.6; O2SAT 95; BMI 31.5
[2024-04-11] MEDS: HYDROcodone-acetaminophen 5-325 mg Tablet 1 TAB PO (21:16)
--- NOTE | 2024-04-11 21:18 | ED_ITS ---
HPI - Extremity Problem General: Chief complaint: Extremity Injury, Lower Stated complaint: left ankle injury Time Seen by Provider: 04/11/24 21:10 Source: patient Mode of arrival: ambulatory Limitations: no limitations History of Present Illness: Patient is a 63-year-old male who presents the emergency department with left ankle pain. Patient states he twisted his ankle while walking down steps, has had steady worsening of pain to the left lateral ankle. No previous fractures or injuries to this ankle. Pain specifically worsened with weightbearing, he denies falling or hitting his head. He states that the pain feels like an extreme soreness and has steadily worsened while sitting in triage. He has not taken anything for the pain. Rating it currently is a 7/10. Notes that it his started to swell more. He is not reporting any knee pain. No distal neurovascular symptoms. MD Complaint: joint swelling and joint pain Onset (ago): hour(s) Pain Consistency: constant Location: left and lower extremity (Ankle) Severity scale (1-10): 7 Quality: other (Soreness) Radiation: none Exacerbating factors: weight bearing and walking Associated symptoms: Deny chest pain, fever(s) or rash Related Data Previous Rx's ?Medication ?Instructions ?Recorded aspirin 81 mg tablet,delayed 81 mg PO DAILY #30 tabs 0 07/02/23 release atorvastatin 40 mg tablet (Lipitor) 40 mg PO DAILY #90 tabs 07/12/23 fluticasone propionate 50 2 spray intranasal DAILY #16 grams 09/24/23 mcg/actuation nasal spray,suspension (Flonase Allergy Relief) albuterol sulfate 90 mcg/actuation 2 inh inhalation Q4 H PRN shortness 11/05/23 aerosol inhaler of breath or wheezing #18 gr ams fluticasone furoate 200 1 inh inhalation DAILY #60 e a 02/04/24 mcg-vilanterol 25 mcg/dose inhalation powder (Breo Ellipta) amoxicillin 500 mg-potassium 1 tab PO TID #30 tabs 03/15 clavulanate 125 mg tablet (Augmentin) losartan 50 mg tablet 50 mg PO DAILY #90 tabs 03/22 05/13 Allergies Allergy/AdvReac Type Severity Reaction Status Date / Time No Known Allergies Allergy Verified 02/20/24 13:52 Review of Systems General: Reports: 10 or more systems reviewed and unremarkable except in HPI and below Const: Denies: fever(s) or chills Card: Denies: chest pain Resp: Denies: dyspnea or productive cough GI: Denies: abdominal pain, nausea, vomiting or diarrhea : Denies: flank pain Musc: Reports: joint pain, joint swelling and limited range of motion; Denies: neck pain, back pain, extremity pain, extremity swelling, joint redness, joint warmth or muscle weakness Skin/Breast: Denies: rash Neuro: Denies: headache(s), numbness in extremities or weakness in extremities PFSH ED PFSH: Medical History COPD (chronic obstructive pulmonary disease) Mitral valve prolapse Tricuspid valve prolapse Surgical History History of back surgery 1990 Family History Other Diabetes Hyperlipidemia Hypertension Denies family history of CAD (coronary artery disease) Clotting disorder Dementia Psychiatric illness Chronic kidney disease (CKD) Anesthesia complication Bleeding disorder Lung disease Cancer Stroke Social History Smoking and tobacco/nicotine status: former use of tobacco/nicotine Alcohol intake: current Alcohol intake frequency: 3 or more drinks per day Alcohol type: beer Substance/Drug Use: never Lives independently: Yes Marital status: / Number of children: 3 Current occupational status: employed 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 Special tin needs: No Agree to transfusion: Yes Physical Exam Const: COMMON NORMALS: no acute distress, patient oriented x3, no limitations, alert and well nourished HENMT: COMMON NORMALS: normocephalic and atraumatic HEAD & SCALP: normocephalic and atraumatic Neck/C-Spine: COMMON NORMALS: full ROM, supple and no meningeal signs Resp: COMMON NORMALS: normal respiratory effort, No use of accessory muscles and clear to auscultation bilaterally AUSCULTATION: clear to auscultation bilaterally Cardio: COMMON NORMALS: regular rate and regular rhythm RATE: regular rate RHYTHM: regular rhythm Extremity: COMMON NORMALS: capillary refill normal and no clubbing, cyanosis or edema NARRATIVE EXTREMITY EXAM: Swelling to left lateral malleolus, tender to palpation at this region. No tenderness to palpation of the proximal fibula. Mild amount of posterior bruising noted. Dorsalis pedis and posterior tibial pulse palpable. No coolness to the extremity. Distal sensations intact. Normal capillary refill. Neuro: COMMON NORMALS: patient oriented x3, moves all extremities, no focal motor deficits and no sensory deficits noted SENSORIUM/ORIENTATION: Yes alert MENINGEAL SIGNS: Yes no meningeal signs Skin: COMMON NORMALS: no rashes or lesions noted GENERAL SKIN EXAM: no rashes or lesions noted Course Vital Signs: Vital signs: Vital Signs Temperature 98 F 04/11/24 19:33 Pulse Rate 107 H 04/11/24 19:33 Respiratory Rate 18 04/11/24 19:33 Blood Pressure 142/73 04/11/24 19:33 Pulse Oximetry 95 04/11/24 19:33 Oxygen Delivery Me thod Room Air 04/11/24 19:33 MDM - Extremity (Nontraumatic) Medical Decision Making Evidence of a distal left fibula fracture, with no significant displacement and fracture appears well aligned. Will have the patient splinted in posterior splint with stirrup, made nonweightbearing with crutches, and referred to podiatry for further evaluation. He is given [place] here for the pain, discussed return precautions of which she verbalized understanding. Post splint ne urovascular status is intact. Lab Data Radiology Impressions Ankle X-Ray 04/11/24 19:11 IMPRESSION: 1. Soft tissue swelling along the lateral aspect of the ankle. 2. Fracture of the lateral malleolus. All radiology interpretation(s) finalized by discharge Discharge Plan Discharge Patient Disposition: Home Clinical Impression: Ankle fracture, left Qualifiers: Encounter type: initial encounter Fracture type: closed Qualified Code(s): S82.892A - Other fracture of left lower leg, initial encounter for closed fracture Condition: Stable Prescriptions: No Action fluticasone propionate [Flonase Allergy Relief] 50 mcg/actuation spray,suspension 2 spray intranasal DAILY Qty: 16 3RF Rx Instructions: administer into each nostril amoxicillin-pot clavulanate [Augmentin] 500-125 mg tablet 1 tab PO TID Qty: 30 0RF atorvastatin [Lipitor] 40 mg tablet 40 mg PO DAILY Qty: 90 3RF albuterol sulfate 90 mcg/actuation HFA aerosol inhaler 2 inh INHALATION Q4H PRN (Reason: shortness of breath or wheezing) Qty: 18 3RF fluticasone furoate-vilanterol [Breo Ellipta] 200-25 mcg/dose blister with device 1 inh inhalation DAILY Qty: 60 3RF losartan 50 mg tablet 50 mg PO DAILY Qty: 90 1RF aspirin 81 mg tablet,delayed release (DR/EC) 81 mg PO DAILY Qty: 30 0RF Discharge Orders: Discharge ED (Routine); Ordered 04/11/24 Ordered By: Zev Mcpherson Referrals: Abdi Brothers MD [Primary Care Provider] - Patient Instructions: Ankle Fracture (ED) Activity Restrictions/Additional Instructions: Follow-up with podiatry as we discussed. Nonweightbearing with crutches. Take ibuprofen or Tylenol for your pain. Elevate the extremity for swelling. Return with any coolness to extremity, severe worsening of pain, or any other concerns you have. Please see attached patient instructions for further education. Print Language: Thai Coding Level of Care Code ED Catering Sales Manager for [place] Espinoza
[2024-04-11 22:02] VITALS: BP 147/74; PULSE 98; RESP 16; O2SAT 96
--- NOTE | 2024-04-14 07:12 | DCPLANNER ---
messaged podiatry for er f/u
== END 2024-04-11 22:01 | disposition home or self-care (01) ==
PROVIDERS: Emergency Provider Physician Assistant; PCP Family Medicine
DX: S82.892A Other fracture of left lower leg, initial encounter for closed fracture (principal); Z79.82 Long term (current) use of aspirin; Z87.891 Personal history of nicotine dependence; J44.9 Chronic obstructive pulmonary disease, unspecified; X58.XXXA Exposure to other specified factors, initial encounter
CPT/HCPCS: 29515; 73610; 99283; 99291; E0114

== ENCOUNTER 2024-04-14 16:48 | Outpatient (CLI) | payer OTHER, SELFPAY | END 2024-04-14 16:49 | disposition home or self-care (01) | LOC: SPT 16:49 | PROVIDERS: PCP Family Medicine; Visit Provider Podiatrist Foot & Ankle Surgery | DX: Z46.89 Encounter for fitting and adjustment of other specified devices (principal); S82.892D Other fracture of left lower leg, subsequent encounter for closed fracture with routine healing; X58.XXXD Exposure to other specified factors, subsequent encounter | CPT/HCPCS: L4361 ==

== ENCOUNTER 2024-04-16 01:17 | Emergency (ER) | payer OTHER, SELFPAY ==
[2024-04-16 01:27] VITALS: BP 151/65; PULSE 99; RESP 18; TEMP 36.6; O2SAT 94; BMI 28.7
--- NOTE | 2024-04-16 01:28 | XRR_ITS ---
PROCEDURE INFORMATION: Exam: XR Left Ankle Exam date and time: 04/16/2024 1:32 AM Age: 64 years old Clinical indication: Injury or trauma; Fall; Blunt trauma; Ankle; Left; Additional info: Worsening pain, known fracture TECHNIQUE: Imaging protocol: Radiologic exam of the left ankle. Views: 3 or more views. COMPARISON: CR XR ankle LT min 3V* [id number] 04/11/2024 7:17 PM FINDINGS: Bones/joints: Acute oblique minimally displaced distal fibular fracture just above the level of the ankle mortise with little change from prior. Bones are normally aligned. Soft tissues: Lateral soft tissue swelling. XR/XR ankle LT min 3V* [id number] IMPRESSION: Acute oblique minimally displaced distal fibular fracture just above the level of the ankle mortise with little change from prior.
[2024-04-16] MEDS: HYDROcodone-acetaminophen 10-325 mg Tablet 1 TAB PO (01:56)
[2024-04-16 01:57] VITALS: BP 129/67; PULSE 98; O2SAT 97
--- NOTE | 2024-04-16 02:07 | ED_ITS ---
HPI - Extremity Problem General: Chief complaint: Extremity Problem,Nontraumatic Stated complaint: Broke Foot Hurts\Swollen Time Seen by Provider: 04/16/24 01:23 History of Present Illness: 64-year-old man who recently fractured h is ankle. He is in a walking boot. He followed with Ortho/podiatry. He went to work today. Pain was much worse tonight. He has no pain medications. Related Data Previous Rx's ?Medication ?Instructions ?Recorded aspirin 81 mg tablet,delayed 81 mg PO DAILY #30 tabs 0 07/02/23 release atorvastatin 40 mg tablet (Lipitor) 40 mg PO DAILY #90 tabs 07/12/23 fluticasone propionate 50 2 spray intranasal DAILY #16 grams 09/24/23 mcg/actuation nasal spray,suspension (Flonase Allergy Relief) albuterol sulfate 90 mcg/actuation 2 inh inhalation Q4 H PRN shortness 11/05/23 aerosol inhaler of breath or wheezing #18 gr ams fluticasone furoate 200 1 inh inhalation DAILY #60 e a 02/04/24 mcg-vilanterol 25 mcg/dose inhalation powder (Breo Ellipta) amoxicillin 500 mg-potassium 1 tab PO TID #30 tabs 03/15 clavulanate 125 mg tablet (Augmentin) losartan 50 mg tablet 50 mg PO DAILY #90 tabs 03/22 05/13 CAM walker #1 ea 04/14/24 diclofenac sodium 50 mg 50 mg PO BID PRN pain #14 ta bs 04/16/24 tablet,delayed release hydrocodone 5 mg-acetaminophen 325 1 tab PO Q6H PRN pa in #20 tabs 04/16/24 mg tablet Allergies Allergy/AdvReac Type Severity Reaction Status Date / Time No Known Allergies Allergy Verified 04/16/24 01:30 Review of Systems Narrative: Constitutional symptoms: Negative except as documented in HPI. Skin symptoms: Negative except as documented in HPI. Eye symptoms: Negative except as documented in HPI. ENMT symptoms: Negative except as documented in HPI. Respiratory symptoms: Negative except as documented in HPI. Cardiovascular symptoms: Negative except as documented in HPI. Gastrointestinal symptoms: Negative except as documented in HPI. Genitourinary symptoms: Negative except as documented in HPI. Musculoskeletal symptoms: Negative except as documented in HPI. Neurologic symptoms: Negative except as documented in HPI. Psychiatric symptoms: Negative except as documented in HPI. Endocrine symptoms: Negative except as documented in HPI. PFSH ED PFSH: Medical History COPD (chronic obstructive pulmonary disease) Mitral valve prolapse Tricuspid valve prolapse Surgical History History of back surgery 1989 Family History Other Diabetes Hyperlipidemia Hypertension Denies family history of CAD (coronary artery disease) Clotting disorder Dementia Psychiatric illness Chronic kidney disease (CKD) Anesthesia complication Bleeding disorder Lung disease Cancer Stroke Social History Smoking and tobacco/nicotine status: former use of tobacco/nicotine Alcohol intake: current Alcohol intake frequency: 3 or more drinks per day Alcohol type: beer Substance/Drug Use: never Lives independently: Yes Marital status: / Number of children: 3 Current occupational status: employed 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 Skin: warm and dry Head: Normocephalic Neck: Trachea midline Eye: Extraocular movements are intact. Ears, nose, mouth and throat: Oral mucosa moist Respiratory: Respirations are non-labored Musculoskeletal: Mild edema. Lateral malleolus. Neurological: Alert and oriented, No focal neurological deficit observed. Psychiatric: Cooperative, appropriate mood & affect. Course Vital Signs: Vital signs: Vital Signs Temperature 97.9 F 04/16/24 01:27 Pulse Rate 98 04/16/24 01:57 Respiratory Rate 18 04/16/24 01:27 Blood Pressure 129/67 04/16/24 01:57 Pulse Oximetry 97 04/16/24 01:57 Oxygen Delivery Me thod Room Air 04/16/24 01:57 MDM - Extremity (Nontraumatic) Medical Decision Making X-ray shows little change from previous. Fibular fracture is present. Assessment and plan: Ankle fracture ? [place] in the emergency room. - Discharged home - Discussed plan with patient. Answered any questions. - Evaluation and treatment of this problem were appropriate in the emergency setting. Lab Data Radiology Impressions Ankle X-Ray 04/16/24 01:28 IMPRESSION: Acute oblique minimally displaced distal fibular fracture just above the level of the ankle mortise with little change from prior. All radiology interpretation(s) finalized by discharge Discharge Plan Discharge Patient Disposition: Home Clinical Impression: Ankle fracture, left Qualifiers: Encounter type: subsequent encounter Fracture type: closed Fracture healing: with routine healing Qualified Code(s): S82.892D - Other fracture of left lower leg, subsequent encounter for closed fracture with routine healing Condition: Stable Prescriptions: New hydrocodone-acetaminophen 5-325 mg tablet 1 tab PO Q6H PRN (Reason: pain) Qty: 20 0RF diclofenac sodium 50 mg tablet,delayed release (DR/EC) 50 mg PO BID PRN (Reason: pain) Qty: 14 0RF No Action fluticasone propionate [Flonase Allergy Relief] 50 mcg/actuation spray,suspension 2 spray intranasal DAILY Qty: 16 3RF Rx Instructions: administer into each nostril amoxicillin-pot clavulanate [Augmentin] 500-125 mg tablet 1 tab PO TID Qty: 30 0RF (DME) CAM walker See Rx Instructions .Route .MEDSUPPLY Qty: 1 0RF Rx Instructions: As directed atorvastatin [Lipitor] 40 mg tablet 40 mg PO DAILY Qty: 90 3RF albuterol sulfate 90 mcg/actuation HFA aerosol inhaler 2 inh INHALATION Q4H PRN (Reason: shortness of breath or wheezing) Qty: 18 3RF fluticasone furoate-vilanterol [Breo Ellipta] 200-25 mcg/dose blister with device 1 inh inhalation DAILY Qty: 60 3RF losartan 50 mg tablet 50 mg PO DAILY Qty: 90 1RF aspirin 81 mg tablet,delayed release (DR/EC) 81 mg PO DAILY Qty: 30 0RF Discharge Orders: Discharge ED (Routine); Ordered 04/16/24 Ordered By: Karoline Gallo Referrals: Abdi Brothers MD [Primary Care Provider] - Discharge Diet: Usual diet Discharge Activity: Limit activity as instructed Patient Instructions: Opioid Safety, Pain Management Activity Restrictions/Additional Instructions: Thank you for choosing [facility] for your healthcare needs today. Please realize this is an emergency room and that we are providing you with a medical screening exam and this may not be complete and all inclusive of all the testing and or work up that you may need to determine your ailment or severity of your illness. You have been screened and evaluated and felt safe for discharge. Health conditions do change or evolve sometimes and as such it is important that you follow up with your Primary Doctor to be re checked, 3-5 days is a general good time frame for follow up. You are always welcome to return to the ED for re assessment if your symptoms are worsening or you have new concerns Print Language: Congolese Coding Level of Care Code ED Photography Coordinator for Georgia Espinoza
== END 2024-04-16 02:30 | disposition home or self-care (01) ==
PROVIDERS: Emergency Provider Emergency Medicine; PCP Family Medicine
DX: S82.892D Other fracture of left lower leg, subsequent encounter for closed fracture with routine healing (principal); Z79.82 Long term (current) use of aspirin; Z87.891 Personal history of nicotine dependence; J44.9 Chronic obstructive pulmonary disease, unspecified; X58.XXXD Exposure to other specified factors, subsequent encounter
CPT/HCPCS: 73610; 99283

== ENCOUNTER → 2024-04-28 16:21 | Outpatient (BNVA) | payer OTHER, SELFPAY | PROVIDERS: PCP Family Medicine; Visit Provider Podiatrist Foot & Ankle Surgery | DX: S82.832A Other fracture of upper and lower end of left fibula, initial encounter for closed fracture (principal); X58.XXXA Exposure to other specified factors, initial encounter | CPT/HCPCS: 73610 ==

== ENCOUNTER → 2024-05-19 15:20 | Outpatient (BNVA) | payer OTHER, SELFPAY | PROVIDERS: PCP Family Medicine; Visit Provider Podiatrist Foot & Ankle Surgery | DX: M25.572 Pain in left ankle and joints of left foot (principal); S82.832D Other fracture of upper and lower end of left fibula, subsequent encounter for closed fracture with routine healing; X58.XXXD Exposure to other specified factors, subsequent encounter | CPT/HCPCS: 73610 ==

== ENCOUNTER 2024-05-20 10:03 | Outpatient (CLI) | payer OTHER, SELFPAY | END 2024-05-20 10:04 | disposition home or self-care (01) | LOC: SPT 10:04 | PROVIDERS: PCP Family Medicine; Visit Provider Podiatrist Foot & Ankle Surgery | DX: Z46.89 Encounter for fitting and adjustment of other specified devices (principal); S82.899D Other fracture of unspecified lower leg, subsequent encounter for closed fracture with routine healing; X58.XXXD Exposure to other specified factors, subsequent encounter | CPT/HCPCS: L1902 ==

== ENCOUNTER → 2024-06-16 15:35 | Outpatient (BNVA) | payer OTHER, SELFPAY | PROVIDERS: PCP Family Medicine; Visit Provider Podiatrist Foot & Ankle Surgery | DX: S82.832D Other fracture of upper and lower end of left fibula, subsequent encounter for closed fracture with routine healing (principal); X58.XXXD Exposure to other specified factors, subsequent encounter | CPT/HCPCS: 73610 ==

== ENCOUNTER → 2024-07-30 15:20 | Outpatient (BNVA) | payer OTHER, SELFPAY | PROVIDERS: PCP Family Medicine; Visit Provider Podiatrist Foot & Ankle Surgery | DX: S82.832A Other fracture of upper and lower end of left fibula, initial encounter for closed fracture (principal); X58.XXXA Exposure to other specified factors, initial encounter | CPT/HCPCS: 73610 ==

== ENCOUNTER → 2025-01-30 15:40 | Outpatient (BNVA) | payer OTHER, SELFPAY | PROVIDERS: PCP Family Medicine; Visit Provider Family Medicine | DX: I34.1 Nonrheumatic mitral (valve) prolapse (principal) | CPT/HCPCS: 80053; 80061; 84439; 84443; 85025 ==

== ENCOUNTER 2025-02-17 17:23 | Outpatient (CLI) | payer OTHER, SELFPAY ==
--- NOTE | 2025-02-17 17:00 | CT_ITS ---
WS: [id number] LDCT LUNG CANCER SCREENING TECHNIQUE: Noncontrast CT of the chest with coronal and sagittal reformatted images. CLINICAL INFORMATION: nodule and screening COMPARISON: 2023 DLP: 98.98 mGy.cm DIvol: Mean CTDIvol: 1.90 (mGy) All CT scans at [facility] use at least one of these dose optimization techniques: automated exposure control; mA and/or kV adjustment per patient size (includes targeted exams where dose is matched to clinical indication); or iterative reconstruction. FINDINGS: Previously described 6 mm nodule RIGHT lower lobe has essentially resolved with a tiny residual subpleural nodule Previously described spiculated opacity LEFT upper lobe measuring 5 mm has resolved A few stable tiny micronodules in the RIGHT upper lobe. No new suspicious pulmonary parenchymal abnormalities. No mediastinal or hilar lymphadenopathy. No axillary lymphadenopathy. Normal GE junction. Adrenal glands are normal. Mild thoracic curve. Schmorl's nodes in the mid and lower thoracic spine. Normal caliber thoracic aorta. Aortic calcification. Coronary calcification CT/CT lung screening [id number] IMPRESSION: LUNG-RADS: 2-Benign Appearance or Behavior FOLLOW UP: 12 Month: Continue annual screening with LDCT
== END 2025-02-17 17:24 | disposition home or self-care (01) ==
LOC: RAD 17:25
PROVIDERS: PCP Family Medicine; Visit Provider Family Medicine
DX: R91.8 Other nonspecific abnormal finding of lung field (principal); I70.0 Atherosclerosis of aorta; I25.10 Atherosclerotic heart disease of native coronary artery without angina pectoris
CPT/HCPCS: 71271